=== PATIENT | female | born 1935 | race Caucasian/White ===

== ENCOUNTER → 2016-06-15 | Outpatient (CLI) | payer MEDICARE ==
[~2016-06-15] MED LIST: ACET-1600 PO; AMLO-284 PO; AMLO1TAB12 PO; ASPI-496 PO; ASPI-621 PO; ASPI1TAB2 PO; ATOR20TA PO; ATOR20TA9 PO; CALC-109 PO; CALC-31 PO; CETI10CA PO; CETI10TA24 PO; CHOL400T2 PO; CRAN1CAP9 PO; CRANBERRY VIT C PO; FEXO1TAB25 PO; FISH1CAP PO; GLUC1500 PO; GLUC1CAP13 PO; ISOS30TA8 PO; MULT-717 PO; OMEP20CA9 PO; OMEP20TA62 PO; PARO-28 PO; PARO20TA4 PO; POVI15DR EACHEYE; TRAM50TA2 PO
== END | disposition home or self-care (01) ==
LOC: CFH 14:46
PROVIDERS: ATTEND Family Medicine
DX: R91.1 Solitary pulmonary nodule (principal); M47.894 Other spondylosis, thoracic region
CPT/HCPCS: 71020

== ENCOUNTER → 2016-07-19 | Outpatient (CLI) | payer MEDICARE | END | disposition home or self-care (01) | LOC: CFH 15:57 | PROVIDERS: ATTEND Family Medicine | DX: J18.9 Pneumonia, unspecified organism (principal); I70.0 Atherosclerosis of aorta; M47.894 Other spondylosis, thoracic region | CPT/HCPCS: 71020 ==

== ENCOUNTER → 2016-08-22 | Outpatient (CLI) | payer MEDICARE | END | disposition home or self-care (01) | LOC: CFH 15:25 | PROVIDERS: ATTEND Family Medicine | DX: R91.8 Other nonspecific abnormal finding of lung field (principal); J98.11 Atelectasis | CPT/HCPCS: 71020 ==

== ENCOUNTER → 2016-09-06 | Outpatient (CLI) | payer MEDICARE | END | disposition home or self-care (01) | LOC: CFH 15:40 | PROVIDERS: ATTEND Family Medicine | DX: R91.8 Other nonspecific abnormal finding of lung field (principal); I70.0 Atherosclerosis of aorta | CPT/HCPCS: 71020 ==

== ENCOUNTER → 2016-09-26 | Outpatient (CLI) | payer MEDICARE | END | disposition home or self-care (01) | LOC: CFH 15:14 | PROVIDERS: ATTEND Family Medicine | DX: R91.8 Other nonspecific abnormal finding of lung field (principal); I70.0 Atherosclerosis of aorta | CPT/HCPCS: 71020 ==

== ENCOUNTER 2016-10-17 05:43 | Day surgery (SDC) | payer MEDICARE ==
[~2016-10-17] VITALS: Ht 157.5 cm; Wt 70.7 kg
[2016-10-17 06:07] VITALS: BP 122/70
[2016-10-17] MEDS ORDERED: SODIUM CHLORIDE 0.9% 1,000 ML IV SCH (06:30)
[2016-10-17] MEDS ORDERED: LIDOCAINE 1%, 20ML ONE (07:36)
[2016-10-17] MEDS ORDERED: NALOXONE 1 MG/ML, 2ML ONE (08:17)
[2016-10-17] MEDS ORDERED: FENTANYL PF 100 MCG/2ML ONE (08:17)
[2016-10-17] MEDS ORDERED: MIDAZOLAM 1 MG/ML, 5ML ONE (08:17)
[2016-10-17] MEDS ORDERED: FLUMAZENIL 0.1 MG/1 ML, 5ML ONE (08:18)
== END 2016-10-17 13:15 ==
LOC: OUT 05:43
PROVIDERS: ATTEND Family Medicine
DX: C34.91 Malignant neoplasm of unspecified part of right bronchus or lung (principal); I10 Essential (primary) hypertension; Z87.01 Personal history of pneumonia (recurrent); Z87.891 Personal history of nicotine dependence
CPT/HCPCS: 32405; 71010; 77012; 88305; 99156; 99157; J2250; J3010; J3490; J2310

== ENCOUNTER → 2016-10-31 | Outpatient (CLI) | payer MEDICARE | LOC: CARD 14:30 | PROVIDERS: ATTEND Thoracic Surgery (Cardiothoracic Vascular Surgery) | DX: C34.30 Malignant neoplasm of lower lobe, unspecified bronchus or lung (principal) | CPT/HCPCS: 94060; 94726; 94729 ==

== ENCOUNTER → 2016-11-02 | Outpatient (CLI) | payer MEDICARE ==
[~2016-11-02] MED LIST changes: +ASPI-691 PO; -ASPI1TAB2 PO
== END | disposition home or self-care (01) ==
LOC: PETCFH 09:15
PROVIDERS: ATTEND Thoracic Surgery (Cardiothoracic Vascular Surgery)
DX: C34.31 Malignant neoplasm of lower lobe, right bronchus or lung (principal); K57.30 Diverticulosis of large intestine without perforation or abscess without bleeding; M47.896 Other spondylosis, lumbar region
CPT/HCPCS: 78815; A9552

== ENCOUNTER → 2016-11-05 | Outpatient (CLI) | payer MEDICARE ==
[~2016-11-05] MED LIST changes: -ASPI-691 PO; +ASPI1TAB2 PO; +GADOBUTROL 7.5 MMOL/7.5 ML PFS ONE
== END | disposition home or self-care (01) ==
LOC: CFH 07:12
PROVIDERS: ATTEND Thoracic Surgery (Cardiothoracic Vascular Surgery)
DX: C34.31 Malignant neoplasm of lower lobe, right bronchus or lung (principal); I67.82 Cerebral ischemia
CPT/HCPCS: 70553; 82565; A9585

== ENCOUNTER → 2016-11-15 | Outpatient (CLI) | payer MEDICARE ==
[~2016-11-15] MED LIST changes: +ASPI-691 PO; -ASPI1TAB2 PO; -GADOBUTROL 7.5 MMOL/7.5 ML PFS ONE
== END | disposition home or self-care (01) ==
LOC: CVU 10:27
PROVIDERS: ATTEND Internal Medicine Cardiovascular Disease
DX: Z01.810 Encounter for preprocedural cardiovascular examination (principal); I08.3 Combined rheumatic disorders of mitral, aortic and tricuspid valves; J18.9 Pneumonia, unspecified organism; Z85.118 Personal history of other malignant neoplasm of bronchus and lung
CPT/HCPCS: 93306; 93880

== ENCOUNTER 2016-12-18 11:25 | Inpatient (IN) | payer MEDICARE ==
[~2016-12-18] VITALS: Ht 157.5 cm; Wt 70.3 kg
[~2016-12-18 11:25] MED LIST changes: +BUPIVACAINE/PF 0.5% ONE; +EPINEPHRINE 1 MG/ML, 1ML ONE; +GLYCOPYRROLATE 0.2MG/1ML, 5ML ONE; +NEOSTIGMINE 1 MG/ML, 10ML ONE
[2016-12-18] MEDS ORDERED: LACTATED RINGERS 1,000 ML IV SCH ×2 (12:04→15:53)
[2016-12-18] MEDS ORDERED: FENTANYL PF 100 MCG/2ML ONE ×3 (12:50→15:51)
[2016-12-18] MEDS ORDERED: CLINDAMYCIN 150 MG/ML, 6ML ONE (13:29)
[2016-12-18] MEDS ORDERED: ALBUTEROL SULFATE 2.5 MG/3 ML NPPB PRN (13:30)
[2016-12-18] MEDS ORDERED: LABETALOL 5MG/ML, 20ML IV PRN (13:30)
[2016-12-18] MEDS ORDERED: HYDROmorphone 1 MG/ML, 1ML IV PRN (13:30)
[2016-12-18] MEDS ORDERED: ONDANSETRON 2MG/ML, 2ML IVPush PRN ×2 (13:30→16:00)
[2016-12-18] MEDS ORDERED: FENTANYL PF 100 MCG/2ML IV PRN (13:30)
[2016-12-18] MEDS ORDERED: PROMETHAZINE 25 MG/ML, 1ML IV PRN (13:30)
[2016-12-18] MEDS ORDERED: hydrALAzine 20 MG/ML, 1ML IV PRN (13:30)
[2016-12-18] MEDS ORDERED: ACETAMINOPHEN 325 MG TABLET PO PRN (13:30)
[2016-12-18] MEDS ORDERED: PROPOFOL 10 MG/ML, 20ML ONE (14:07)
[2016-12-18] MEDS ORDERED: ROCURONIUM 10 MG/ML ONE (14:07)
[2016-12-18] MEDS ORDERED: ONDANSETRON 2MG/ML, 2ML ONE (14:08)
[2016-12-18] MEDS ORDERED: DEXAMETHASONE 4 MG/ML, 1ML ONE ×2 (14:08)
[2016-12-18] MEDS ORDERED: PHENYLEPHRINE 10 MG/ML ONE ×2 (14:40)
[2016-12-18] MEDS ORDERED: OXYcodone 5 MG/5 ML ORAL.SOL UDC ONE (15:51)
[2016-12-18] MEDS ORDERED: HYDROmorphone 1 MG/ML, 1ML ONE (15:51)
[2016-12-18] MEDS ORDERED: DIPHENHYDRAMINE 25 MG CAPSULE PO PRN (16:00)
[2016-12-18] MEDS ORDERED: LORazepam 1MG TABLET PO PRN (16:00)
[2016-12-18] MEDS ORDERED: hydrALAzine 20 MG/ML, 1ML IVPush PRN (16:00)
[2016-12-18] MEDS ORDERED: ENALAPRILAT 1.25 MG/ML, 2ML IVPush PRN (16:00)
[2016-12-18] MEDS ORDERED: DIPHENHYDRAMINE 50 MG/ML, 1ML IVPush PRN (16:00)
[2016-12-18] MEDS ORDERED: ACETAMINOPHEN 650 MG SUPP PR PRN (16:00)
[2016-12-18] MEDS ORDERED: LORazepam 2 MG/ML, 1ML IVPush PRN (16:00)
[2016-12-18] MEDS: FAMOTIDINE 20 MG TABLET PO SCH (16:30)
[2016-12-18] MEDS ORDERED: HYDROcodone/APAP 7.5-325MG/15ML UDC PO PRN (16:30)
[2016-12-18] MEDS ORDERED: HYDROcodone/APAP 7.5-325MG/15ML UDC ONE (16:30)
[2016-12-18 18:18] VITALS: BP 92/44
[2016-12-18 20:23] VITALS: BP 99/40
[2016-12-18] MEDS: ATORVASTATIN 20 MG TABLET PO SCH (21:52)
[2016-12-18] MEDS: FAMOTIDINE 20 MG/2 ML IVPush SCH (21:52)
[2016-12-18] MEDS: HYDROcodone/APAP 5/325 TABLET PO PRN (22:37)
[2016-12-18] MEDS: HYDROmorphone 2 MG/ML, 1ML IVPush PRN (22:53)
[2016-12-19 00:44] VITALS: BP 108/53
[2016-12-19] MEDS: FAMOTIDINE 20 MG TABLET PO SCH ×2 (04:18→17:27)
[2016-12-19] MEDS: HYDROmorphone 2 MG/ML, 1ML IVPush PRN ×4 (04:25→23:49)
[2016-12-19 04:42] LABS: HEMATOCRIT 36.8 % (34.6-47.8); HEMOGLOBIN 12.3 g/dL (11.7-16.4); WHITE BLOOD COUNT 9.5 x10^3/uL (3.4-10)
[2016-12-19 04:52] LABS: BLOOD UREA NITROGEN 16 mg/dL (7-18)
[2016-12-19 08:01] VITALS: BP 106/52
[2016-12-19] MEDS ORDERED: VALSARTAN PO SCH (09:00)
[2016-12-19] MEDS ORDERED: AMLODIPINE PO SCH (09:00)
[2016-12-19] MEDS: ENOXAPARIN 40 MG/0.4 ML SQ SCH (09:29)
[2016-12-19] MEDS: FAMOTIDINE 20 MG/2 ML IVPush SCH (09:29)
[2016-12-19] MEDS: PAROXETINE 20 MG TABLET PO SCH (09:29)
[2016-12-19 15:10] VITALS: BP 119/62
[2016-12-19 15:11] VITALS: BP 119/62
[2016-12-19 19:11] VITALS: BP 110/56
[2016-12-19] MEDS: ATORVASTATIN 20 MG TABLET PO SCH (20:11)
[2016-12-20 01:44] VITALS: BP 123/60
[2016-12-20] MEDS: ACETAMINOPHEN 325 MG TABLET PO PRN (03:58)
[2016-12-20] MEDS: FAMOTIDINE 20 MG TABLET PO SCH ×2 (04:28→17:34)
[2016-12-20 06:54] VITALS: BP 145/58
[2016-12-20] MEDS: HYDROmorphone 2 MG/ML, 1ML IVPush PRN (08:22)
[2016-12-20] MEDS: ENOXAPARIN 40 MG/0.4 ML SQ SCH (09:00)
[2016-12-20] MEDS: PAROXETINE 20 MG TABLET PO SCH (10:19)
[2016-12-20 12:37] LABS: PATH.CAST-FLAG NOT PRESENT; SPERM-FLAG NOT PRESENT; SRC-FLAG NOT PRESENT; XTAL-FLAG NOT PRESENT; YLC-FLAG NOT PRESENT
[2016-12-20 14:46] VITALS: BP 128/61
[2016-12-20] MEDS ORDERED: NITROFURANTOIN (MACROBID) 100 MG CAPSULE PO SCH (16:00)
[2016-12-20] MEDS: FOSFOMYCIN 3 GM PACKET PO SCH (17:34)
[2016-12-20] MEDS: HYDROcodone/APAP 5/325 TABLET PO PRN (17:42)
[2016-12-20 18:44] VITALS: BP 135/70
[2016-12-20] MEDS: ATORVASTATIN 20 MG TABLET PO SCH (20:05)
[2016-12-21 01:26] VITALS: BP 118/54
[2016-12-21] MEDS: HYDROmorphone 2 MG/ML, 1ML IVPush PRN ×3 (04:47→21:04)
[2016-12-21] MEDS: FAMOTIDINE 20 MG TABLET PO SCH ×2 (04:47→18:03)
[2016-12-21 06:32] VITALS: BP 95/57
[2016-12-21] MEDS: VALSARTAN 80 MG TABLET PO SCH ×2 (08:42→09:00)
[2016-12-21] MEDS: PAROXETINE 20 MG TABLET PO SCH (08:43)
[2016-12-21] MEDS: AMLODIPINE 2.5 MG TABLET PO SCH ×2 (08:43→09:00)
[2016-12-21] MEDS: ENOXAPARIN 40 MG/0.4 ML SQ SCH (08:43)
[2016-12-21 13:35] VITALS: BP 82/46
[2016-12-21] MEDS ORDERED: FUROSEMIDE 20 MG/2 ML IV ONE (14:00)
[2016-12-21 14:41] VITALS: BP 125/69
[2016-12-21] MEDS: ATORVASTATIN 20 MG TABLET PO SCH (19:38)
[2016-12-21 19:39] VITALS: BP 143/75
[2016-12-22 02:14] VITALS: BP 128/58
[2016-12-22] MEDS: HYDROmorphone 2 MG/ML, 1ML IVPush PRN ×5 (02:34→20:33)
[2016-12-22] MEDS: FAMOTIDINE 20 MG TABLET PO SCH ×2 (05:00→18:16)
[2016-12-22 05:48] LABS: HEMATOCRIT 39.3 % (34.6-47.8); HEMOGLOBIN 12.9 g/dL (11.7-16.4); WHITE BLOOD COUNT 7.6 x10^3/uL (3.4-10)
[2016-12-22 06:00] LABS: BLOOD UREA NITROGEN 13 mg/dL (7-18)
[2016-12-22 07:40] VITALS: BP 123/60
[2016-12-22] MEDS: AMLODIPINE 2.5 MG TABLET PO SCH (08:10)
[2016-12-22] MEDS: VALSARTAN 80 MG TABLET PO SCH (08:10)
[2016-12-22] MEDS: ENOXAPARIN 40 MG/0.4 ML SQ SCH (08:10)
[2016-12-22] MEDS: PAROXETINE 20 MG TABLET PO SCH (08:10)
[2016-12-22] MEDS ORDERED: BISACODYL 10 MG SUPP PR PRN (10:30)
[2016-12-22 14:29] VITALS: BP 101/61
[2016-12-22] MEDS: FOSFOMYCIN 3 GM PACKET PO SCH (16:02)
[2016-12-22] MEDS: ATORVASTATIN 20 MG TABLET PO SCH (19:43)
[2016-12-22 20:15] VITALS: BP 149/77
[2016-12-23 01:59] VITALS: BP 122/67
[2016-12-23] MEDS: ACETAMINOPHEN 325 MG TABLET PO PRN ×2 (02:13→20:08)
[2016-12-23] MEDS: FAMOTIDINE 20 MG TABLET PO SCH ×3 (05:43→16:33)
[2016-12-23 07:04] VITALS: BP 142/70
[2016-12-23] MEDS: PAROXETINE 20 MG TABLET PO SCH (09:48)
[2016-12-23] MEDS: ENOXAPARIN 40 MG/0.4 ML SQ SCH (09:48)
[2016-12-23] MEDS ORDERED: ALBUTEROL/IPRATROPIUM 2.5MG/0.5MG, 3 ML ONE (11:35)
[2016-12-23 12:31] VITALS: BP 121/74
[2016-12-23] MEDS: ALBUTEROL/IPRATROPIUM 2.5MG/0.5MG, 3 ML NPPB SCH ×2 (15:00→20:45)
[2016-12-23 19:31] VITALS: BP 131/75
[2016-12-23] MEDS: ATORVASTATIN 20 MG TABLET PO SCH (20:08)
[2016-12-23] MEDS: IBUPROFEN 200 MG TABLET PO PRN (20:10)
[2016-12-23] MEDS ORDERED: ACETAMINOPHEN 650 MG SUPP PR PRN (21:30)
[2016-12-23] MEDS ORDERED: DIPHENHYDRAMINE 50 MG/ML, 1ML IVPush PRN (21:30)
[2016-12-23] MEDS ORDERED: ENALAPRILAT 1.25 MG/ML, 2ML IVPush PRN (21:30)
[2016-12-23] MEDS ORDERED: DIPHENHYDRAMINE 25 MG CAPSULE PO PRN (21:30)
[2016-12-23] MEDS ORDERED: hydrALAzine 20 MG/ML, 1ML IVPush PRN (21:30)
[2016-12-23] MEDS ORDERED: LORazepam 2 MG/ML, 1ML IVPush PRN (21:30)
[2016-12-24 03:55] VITALS: BP 109/71
[2016-12-24 06:56] VITALS: BP 114/68
[2016-12-24] MEDS: IBUPROFEN 200 MG TABLET PO PRN ×2 (08:48→15:29)
[2016-12-24] MEDS: VALSARTAN 80 MG TABLET PO SCH (08:50)
[2016-12-24] MEDS: AMLODIPINE 2.5 MG TABLET PO SCH (08:50)
[2016-12-24] MEDS: ENOXAPARIN 40 MG/0.4 ML SQ SCH (08:51)
[2016-12-24] MEDS: PAROXETINE 20 MG TABLET PO SCH (08:51)
[2016-12-24] MEDS: FAMOTIDINE 20 MG TABLET PO SCH ×2 (08:51→21:39)
[2016-12-24] MEDS ORDERED: AMLODIPINE 2.5 MG TABLET PO SCH (09:00)
[2016-12-24] MEDS ORDERED: VALSARTAN 80 MG TABLET PO SCH (09:00)
[2016-12-24] MEDS: ALBUTEROL/IPRATROPIUM 2.5MG/0.5MG, 3 ML NPPB SCH ×4 (09:33→18:20)
[2016-12-24 12:41] VITALS: BP 107/65
[2016-12-24 19:46] VITALS: BP 94/59
[2016-12-24] MEDS: ATORVASTATIN 20 MG TABLET PO SCH (21:38)
[2016-12-25 01:22] VITALS: BP 90/51
[2016-12-25] MEDS: ALBUTEROL/IPRATROPIUM 2.5MG/0.5MG, 3 ML NPPB SCH ×3 (06:33→15:17)
[2016-12-25 07:32] VITALS: BP 110/60
[2016-12-25] MEDS: FAMOTIDINE 20 MG TABLET PO SCH (09:25)
[2016-12-25] MEDS: PAROXETINE 20 MG TABLET PO SCH (09:25)
[2016-12-25] MEDS: ENOXAPARIN 40 MG/0.4 ML SQ SCH (09:28)
[2016-12-25] MEDS: AMLODIPINE 2.5 MG TABLET PO SCH (12:07)
[2016-12-25] MEDS: VALSARTAN 80 MG TABLET PO SCH (12:07)
[2016-12-25 14:15] VITALS: BP 113/57
[2016-12-25] MEDS: ACETAMINOPHEN 325 MG TABLET PO PRN (14:18)
== END 2016-12-25 17:35 | disposition home or self-care (01) | DRG 163 ==
LOC: ORIP 11:25 → 3NW 16:17
PROVIDERS: ADMIT Thoracic Surgery (Cardiothoracic Vascular Surgery); ATTEND Thoracic Surgery (Cardiothoracic Vascular Surgery)
PROC: 07B74ZX Excision of Thorax Lymphatic, Percutaneous Endoscopic Approach, Diagnostic (ICD-10-PCS; 2016-12-18)
PROC: 0BTF4ZZ Resection of Right Lower Lung Lobe, Percutaneous Endoscopic Approach (ICD-10-PCS; principal; 2016-12-18 13:30)
DX: C34.31 Malignant neoplasm of lower lobe, right bronchus or lung (principal); J96.00 Acute respiratory failure, unspecified whether with hypoxia or hypercapnia; E44.1 Mild protein-calorie malnutrition
CPT/HCPCS: 36415; 71010; 80048; 81001; 85025; 86850; 86900; 86923; 87077; 87086; 87186; 88305; 88309; 93005; 94640; C1729; J0171; J1100; J1170; J1650; J2405; J2704; J2710; J3010; J3490; J7620; J2370; J7120; S0028

== ENCOUNTER 2017-01-17 10:34 | Day surgery (SDC) | payer MEDICARE ==
[~2017-01-17] VITALS: Ht 157.5 cm; Wt 69.2 kg
[~2017-01-17 10:34] MED LIST changes: -BUPIVACAINE/PF 0.5% ONE; -EPINEPHRINE 1 MG/ML, 1ML ONE; -GLYCOPYRROLATE 0.2MG/1ML, 5ML ONE; -NEOSTIGMINE 1 MG/ML, 10ML ONE
[2017-01-17] MEDS ORDERED: PLEASE ENTER HEIGHT AND WEIGHT MC SCH (11:00)
[2017-01-17 11:14] VITALS: BP 132/80
[2017-01-17] MEDS ORDERED: SODIUM CHLORIDE 0.9% 1,000 ML IV SCH (11:17)
[2017-01-17] MEDS ORDERED: VANCOMYCIN PMX 1GM/200ML 200 ML IVPB ONE (11:30)
[2017-01-17] MEDS ORDERED: LIDOCAINE 1%, 20ML ONE (11:44)
[2017-01-17] MEDS ORDERED: MIDAZOLAM 1 MG/ML, 5ML ONE (12:50)
[2017-01-17] MEDS ORDERED: FENTANYL PF 100 MCG/2ML ONE (12:50)
== END 2017-01-17 15:15 ==
LOC: OUT 10:34
PROVIDERS: ATTEND Internal Medicine Hematology & Oncology
DX: Z45.2 Encounter for adjustment and management of vascular access device (principal); C34.90 Malignant neoplasm of unspecified part of unspecified bronchus or lung; I10 Essential (primary) hypertension; E78.00 Pure hypercholesterolemia, unspecified; F41.9 Anxiety disorder, unspecified; Z98.890 Other specified postprocedural states; Z88.5 Allergy status to narcotic agent; Z88.0 Allergy status to penicillin; Z88.8 Allergy status to other drugs, medicaments and biological substances; Z88.1 Allergy status to other antibiotic agents; Z91.040 Latex allergy status
CPT/HCPCS: 36561; 76937; 77001; 99156; 99157; C1788; J3370; J7030; J2250; J3010; J3490; J1642

== ENCOUNTER → 2017-01-18 | Outpatient (CLI) | payer MEDICARE | END | disposition home or self-care (01) | LOC: ROC 13:31 | PROVIDERS: ATTEND Radiology Radiation Oncology | DX: C34.31 Malignant neoplasm of lower lobe, right bronchus or lung (principal) | CPT/HCPCS: G0463 ==

== ENCOUNTER → 2017-04-03 | Outpatient (CLI) | payer MEDICARE ==
[~2017-04-03] MED LIST changes: -GLUC1500 PO; +GLUC15006 PO
== END | disposition home or self-care (01) ==
LOC: ROC 09:37
PROVIDERS: ATTEND Radiology Radiation Oncology
DX: C34.31 Malignant neoplasm of lower lobe, right bronchus or lung (principal)
CPT/HCPCS: G0463

== ENCOUNTER → 2017-04-29 | Outpatient (CLI) | payer MEDICARE | END | disposition home or self-care (01) | LOC: CFH 10:08 | PROVIDERS: ATTEND Radiology Radiation Oncology | DX: J90 Pleural effusion, not elsewhere classified (principal); R91.8 Other nonspecific abnormal finding of lung field; I10 Essential (primary) hypertension; C34.31 Malignant neoplasm of lower lobe, right bronchus or lung; Z92.3 Personal history of irradiation | CPT/HCPCS: 71250; 74176 ==

== ENCOUNTER → 2017-04-30 | Outpatient (CLI) | payer MEDICARE | END | disposition home or self-care (01) | LOC: ROC 08:21 | PROVIDERS: ATTEND Radiology Radiation Oncology | DX: C34.31 Malignant neoplasm of lower lobe, right bronchus or lung (principal) | CPT/HCPCS: G0463 ==

== ENCOUNTER → 2017-08-07 | Outpatient (CLI) | payer MEDICARE ==
[~2017-08-07] MED LIST changes: +OMNIPAQUE 350 MG/ML, 100ML BOTTLE ONE
== END | disposition home or self-care (01) ==
LOC: RAD 14:22
PROVIDERS: ATTEND Internal Medicine Hematology & Oncology
DX: C34.31 Malignant neoplasm of lower lobe, right bronchus or lung (principal); R91.8 Other nonspecific abnormal finding of lung field; J90 Pleural effusion, not elsewhere classified; J98.19 Other pulmonary collapse; K57.30 Diverticulosis of large intestine without perforation or abscess without bleeding; E27.8 Other specified disorders of adrenal gland; F40.240 Claustrophobia
CPT/HCPCS: 71260; 74177; Q9967

== ENCOUNTER 2017-08-19 07:46 | Day surgery (SDC) | payer MEDICARE ==
[~2017-08-19] VITALS: Ht 152.4 cm; Wt 2.5 kg
[~2017-08-19 07:46] MED LIST changes: -OMNIPAQUE 350 MG/ML, 100ML BOTTLE ONE
[2017-08-19 08:38] VITALS: BP 134/85
[2017-08-19] MEDS ORDERED: FENTANYL PF 100 MCG/2ML ONE ×3 (09:37→09:40)
[2017-08-19] MEDS ORDERED: MIDAZOLAM 1 MG/ML, 5ML ONE (09:38)
[2017-08-19] MEDS ORDERED: NALOXONE 1 MG/ML, 2ML ONE (09:38)
[2017-08-19] MEDS ORDERED: FLUMAZENIL 0.1 MG/1 ML, 5ML ONE (09:38)
[2017-08-19] MEDS ORDERED: LIDOCAINE-MPF 2% ,5ML ONE (09:43)
== END 2017-08-19 12:20 ==
LOC: OUT 07:46
PROVIDERS: ATTEND Internal Medicine Hematology & Oncology
DX: T85.9XXA Unspecified complication of internal prosthetic device, implant and graft, initial encounter (principal); Y83.8 Other surgical procedures as the cause of abnormal reaction of the patient, or of later complication, without mention of misadventure at the time of the procedure; Y92.89 Other specified places as the place of occurrence of the external cause; I10 Essential (primary) hypertension
CPT/HCPCS: 36590; 77001; 99156; 99157; J2250; J3010; J3490; J2310

== ENCOUNTER → 2017-10-24 | Outpatient (CLI) | payer MEDICARE | END | disposition home or self-care (01) | LOC: CFH 12:05 | PROVIDERS: ATTEND Internal Medicine Hematology & Oncology | DX: J43.9 Emphysema, unspecified (principal); J90 Pleural effusion, not elsewhere classified; I25.10 Atherosclerotic heart disease of native coronary artery without angina pectoris; K57.30 Diverticulosis of large intestine without perforation or abscess without bleeding; N20.0 Calculus of kidney; E27.8 Other specified disorders of adrenal gland; C34.31 Malignant neoplasm of lower lobe, right bronchus or lung | CPT/HCPCS: 71250; 74176 ==

== ENCOUNTER → 2018-02-21 | Outpatient (CLI) | payer MEDICARE ==
[~2018-02-21] MED LIST changes: -ASPI-621 PO; +ASPI81TA45 PO; +ATOR20TA37 PO; -ATOR20TA9 PO
== END | disposition home or self-care (01) ==
LOC: RAD 15:35
PROVIDERS: ATTEND Internal Medicine Hematology & Oncology
DX: J47.9 Bronchiectasis, uncomplicated (principal); C34.31 Malignant neoplasm of lower lobe, right bronchus or lung
CPT/HCPCS: 71250; 74176

== ENCOUNTER → 2018-06-11 | Outpatient (CLI) | payer MEDICARE | END | disposition home or self-care (01) | LOC: CFH 13:54 | PROVIDERS: ATTEND Internal Medicine Hematology & Oncology | DX: C34.31 Malignant neoplasm of lower lobe, right bronchus or lung (principal); K57.30 Diverticulosis of large intestine without perforation or abscess without bleeding; J90 Pleural effusion, not elsewhere classified; M47.814 Spondylosis without myelopathy or radiculopathy, thoracic region; M47.816 Spondylosis without myelopathy or radiculopathy, lumbar region; I70.8 Atherosclerosis of other arteries; I70.0 Atherosclerosis of aorta | CPT/HCPCS: 71250; 74150 ==

== ENCOUNTER 2018-12-17 11:46 | Outpatient (CLI) | payer MEDICARE ==
[2018-12-17] MEDS ORDERED: OMNIPAQUE 350 MG/ML, 75ML BOTTLE ONE (16:32)
== END 2018-12-17 23:59 | disposition home or self-care (01) ==
LOC: RAD 11:46
PROVIDERS: ATTEND Internal Medicine Hematology & Oncology
DX: J98.4 Other disorders of lung (principal); I70.0 Atherosclerosis of aorta; I25.10 Atherosclerotic heart disease of native coronary artery without angina pectoris; M47.9 Spondylosis, unspecified; J90 Pleural effusion, not elsewhere classified; I70.8 Atherosclerosis of other arteries; J98.11 Atelectasis; E11.9 Type 2 diabetes mellitus without complications; Z82.49 Family history of ischemic heart disease and other diseases of the circulatory system; C34.90 Malignant neoplasm of unspecified part of unspecified bronchus or lung; Z85.118 Personal history of other malignant neoplasm of bronchus and lung
CPT/HCPCS: 36415; 71260; 82565; Q9967

== ENCOUNTER 2019-02-05 13:45 | Emergency (ER) | payer MEDICARE ==
[2019-02-05 13:48] VITALS: BP 108/56
[2019-02-05 14:15] LABS: BASOPHILS # (AUTO) 0.02 x10^3/uL (0-0.1); BASOPHILS % (AUTO) 0 % (0-1); EOSINOPHILS # (AUTO) 0.12 x10^3/uL (0-0.4); EOSINOPHILS % (AUTO) 2 % (1-7); LYMPHOCYTES # (AUTO) 0.88 x10^3/uL (1-3.4); LYMPHOCYTES % (AUTO) 13 % (22-44); MD NO; MEAN CORPUSCULAR HEMOGLOBIN 28.1 pg (27.0-34.8); MEAN CORPUSCULAR HGB CONC 32.5 g/dL (32.4-35.8); MEAN CORPUSCULAR VOLUME 86.3 fL (80-100); MEAN PLATELET VOLUME 8.6 fL (7.4-10.4); MONOCYTES # (AUTO) 0.42 x10^3/uL (0.2-0.8); MONOCYTES % (AUTO) 6 % (2-9); NEUTROPHILS % (AUTO) 79 % (42-75); PLATELET COUNT 158 x10^3/uL (130-400); RED BLOOD COUNT 4.89 x10^6/uL (3.82-5.3); RED CELL DISTRIBUTION WIDTH 15.2 % (9.6-15.2)
--- NOTE | 2019-02-05 14:15 | NUR ---
THIS IS AN 83 YO F W/ C/O NECK PAIN AFTER A FALL TODAY. PATIENT DOES NOT REMEMBER FALLING. FAMILY STATES IT WAS OVER 6 HOURS AGO. PATIENTS RESPIRATIONS ARE EVEN AND UNLABORED. PATIENT IS IN NO ACUTE DISTRESS. PATIENT IS RESTING ON GURNEY CONVERSING WITH STAFF. CALL LIGHT IN REACH. DENIES FURTHER NEEDS AT THIS TIME.
--- NOTE | 2019-02-05 14:17 | NUR ---
PATIENT TO RADIOLOGY.
[2019-02-05 14:18] LABS: ALBUMIN 3.8 g/dL (3.4-5.0); ANION GAP 9 mmol/L (5-15); CALCIUM 9.5 mg/dL (8.5-10.1); CHLORIDE 105 mmol/L (98-107); CREATININE 0.98 mg/dL (0.55-1.02)
--- NOTE | 2019-02-05 16:26 | NUR ---
Patient given discharge instructions and they have confirmed that they understand the instructions. Patient wheeled out in wheelchair.
== END 2019-02-05 16:28 ==
LOC: ED 16:20
DX: S13.9XXA Sprain of joints and ligaments of unspecified parts of neck, initial encounter (principal); S20.219A Contusion of unspecified front wall of thorax, initial encounter; I10 Essential (primary) hypertension; J44.9 Chronic obstructive pulmonary disease, unspecified; E78.5 Hyperlipidemia, unspecified; Z90.711 Acquired absence of uterus with remaining cervical stump; Z87.891 Personal history of nicotine dependence; Z85.118 Personal history of other malignant neoplasm of bronchus and lung; W19.XXXA Unspecified fall, initial encounter; Y93.89 Activity, other specified; Y92.89 Other specified places as the place of occurrence of the external cause; Y99.8 Other external cause status
CPT/HCPCS: 36415; 70450; 71045; 72125; 80048; 82040; 85025; 93005; 99284

== ENCOUNTER 2019-02-07 15:04 | Inpatient (IN) | payer MEDICARE ==
[~2019-02-07] VITALS: Ht 160 cm; Wt 64.8 kg
--- NOTE | 2019-02-07 15:17 | NUR ---
Pt arrives via ems s/p mglf after stnading up from toilet. Pt reports she has falle 3 times this week. Pt seen earlier this week for same situation. Pt reports completing chemo last year. Pt has no s/sx of trauma. Unknown loss of loc, pt does not recall symptoms. Pt connected to monitors and call light in reach. Piv captain's assistant by ems. Pt had 500cc ivf en route. Pt has + orthostatics per ems reports, bp drops to low 70s with standing and hr increases by 15. Awaiting further orders.
[2019-02-07] MEDS ORDERED: ONDA4TAB7 PO (15:23)
[2019-02-07] MEDS ORDERED: OMEP-110 PO (15:23)
[2019-02-07] MEDS ORDERED: FLUO20CA8 PO (15:23)
[2019-02-07] MEDS ORDERED: DONE10TA14 PO (15:23)
[2019-02-07 16:29] LABS: BASOPHILS # (AUTO) 0.02 x10^3/uL (0-0.1); BASOPHILS % (AUTO) 0 % (0-1); EOSINOPHILS # (AUTO) 0.06 x10^3/uL (0-0.4); EOSINOPHILS % (AUTO) 1 % (1-7); LYMPHOCYTES # (AUTO) 0.84 x10^3/uL (1-3.4); LYMPHOCYTES % (AUTO) 13 % (22-44); MD NO; MEAN CORPUSCULAR HGB CONC 32.8 g/dL (32.4-35.8); MEAN CORPUSCULAR VOLUME 85.4 fL (80-100); MEAN PLATELET VOLUME 8.4 fL (7.4-10.4); MONOCYTES # (AUTO) 0.44 x10^3/uL (0.2-0.8); MONOCYTES % (AUTO) 7 % (2-9); NEUTROPHILS % (AUTO) 80 % (42-75); PLATELET COUNT 139 x10^3/uL (130-400); RED BLOOD COUNT 4.54 x10^6/uL (3.82-5.3)
[2019-02-07] MEDS ORDERED: SODIUM CHLORIDE 0.9% 1,000ML IVBOLUS ONE (16:30)
[2019-02-07 16:36] LABS: ALBUMIN 3.4 g/dL (3.4-5.0); ANION GAP 5 mmol/L (5-15); CALCIUM 9.1 mg/dL (8.5-10.1); CHLORIDE 110 mmol/L (98-107)
--- NOTE | 2019-02-07 16:37 | NUR ---
Patient is resting comfortably in bed. Vital Signs within normal limits.
[2019-02-07 16:40] LABS: ALANINE AMINOTRANSFERASE 16 U/L (12-78); ALKALINE PHOSPHATASE 98 U/L (45-117); BILIRUBIN,TOTAL 0.7 mg/dL (0.2-1.0); TOTAL PROTEIN 6.5 g/dL (6.4-8.2)
--- NOTE | 2019-02-07 17:05 | NUR ---
Pt medicated per emar. Pt irritable. Pt resting in bed.
--- NOTE | 2019-02-07 17:22 | NUR ---
Irlanda rodas completed, Roseanna Natarajan RN at bedside as carol. Pt tolerated well. Isidoro. Pt sample walked to the lab.
--- NOTE | 2019-02-07 17:36 | NUR ---
SW to bedside at this time.
[2019-02-07 18:04] LABS: CULTURE INDICATED? YES; MICROSCOPIC INDICATED
[2019-02-07] MEDS ORDERED: NITROFURANTOIN 50 MG CAPSULE PO ONE (18:30)
--- NOTE | 2019-02-07 18:56 | NUR ---
LUNCH RN: HOSPITALIST TO BEDSIDE FOR ADMIT ASSESSMENT.
[2019-02-07] MEDS ORDERED: POLYETHYLENE GLYCOL 17 GM PACKET PO PRN (19:30)
[2019-02-07] MEDS ORDERED: BISACODYL 10 MG SUPP PR PRN (19:30)
[2019-02-07] MEDS ORDERED: ONDANSETRON 4 MG TABLET PO PRN (19:30)
[2019-02-07 21:11] VITALS: BP 145/83
[2019-02-07] MEDS: OMEPRAZOLE 20 MG CAPSULE.DR PO SCH (21:59)
[2019-02-07] MEDS: HEPARIN 5,000 UNITS/ML, 1ML SQ SCH (21:59)
[2019-02-07] MEDS: POTASSIUM CHLORIDE 30 MEQ in SODIUM CHLORIDE 0.9% 1,000 ML IV SCH (21:59)
[2019-02-07] MEDS: ATORVASTATIN 20 MG TABLET PO SCH (22:00)
[2019-02-08] VITALS (9 sets, daily range): BP systolic 87–142; BP diastolic 51–82
[2019-02-08] MEDS: NYSTATIN TOPICAL POWDER 15GM TP SCH ×4 (00:58→23:47)
[2019-02-08] MEDS: HEPARIN 5,000 UNITS/ML, 1ML SQ SCH ×3 (05:05→23:46)
[2019-02-08 05:48] LABS: BASOPHILS # (AUTO) 0.02 x10^3/uL (0-0.1); BASOPHILS % (AUTO) 1 % (0-1); EOSINOPHILS # (AUTO) 0.15 x10^3/uL (0-0.4); EOSINOPHILS % (AUTO) 3 % (1-7); LYMPHOCYTES # (AUTO) 0.87 x10^3/uL (1-3.4); LYMPHOCYTES % (AUTO) 17 % (22-44); MD NO; MEAN CORPUSCULAR HEMOGLOBIN 28.2 pg (27.0-34.8); MEAN CORPUSCULAR HGB CONC 32.7 g/dL (32.4-35.8); MEAN CORPUSCULAR VOLUME 86.4 fL (80-100); MEAN PLATELET VOLUME 8.9 fL (7.4-10.4); MONOCYTES # (AUTO) 0.34 x10^3/uL (0.2-0.8); MONOCYTES % (AUTO) 7 % (2-9); NEUTROPHILS # (AUTO) 3.68 x10^3/uL (1.8-6.8); NEUTROPHILS % (AUTO) 73 % (42-75); PLATELET COUNT 122 x10^3/uL (130-400); RED BLOOD COUNT 4.08 x10^6/uL (3.82-5.3)
[2019-02-08 05:55] LABS: ALANINE AMINOTRANSFERASE 20 U/L (12-78); ALBUMIN 3.1 g/dL (3.4-5.0); ANION GAP 6 mmol/L (5-15); CALCIUM 8.5 mg/dL (8.5-10.1); CHLORIDE 113 mmol/L (98-107); CREATININE 0.58 mg/dL (0.55-1.02)
[2019-02-08 05:58] LABS: ALKALINE PHOSPHATASE 89 U/L (45-117); BILIRUBIN,TOTAL 0.5 mg/dL (0.2-1.0); TOTAL PROTEIN 5.7 g/dL (6.4-8.2)
[2019-02-08] MEDS: TEMPLATE NON-FORMULARY MED. (Gluc Su/Msm/Magnesium/Vit C** (Glucosamine Complex-Msm Cap**) PO SCH (09:00)
[2019-02-08] MEDS ORDERED: FOSFOMYCIN 3 GM PACKET PO ONE (09:00)
[2019-02-08] MEDS ORDERED: NITROFURANTOIN (MACROBID) 100 MG CAPSULE PO SCH (09:00)
[2019-02-08] MEDS: CETIRIZINE 10 MG TABLET PO SCH (09:59)
[2019-02-08] MEDS: MULTIVITAMINS/MINERALS TABLET PO SCH (09:59)
[2019-02-08] MEDS: DONEPEZIL 10 MG TABLET PO SCH (09:59)
[2019-02-08] MEDS: SENNA/DOCUSATE TABLET PO SCH (09:59)
[2019-02-08] MEDS: POTASSIUM CHLORIDE 30 MEQ in SODIUM CHLORIDE 0.9% 1,000 ML IV SCH (12:05)
[2019-02-08] MEDS: OMEGA-3/FISH OIL CAPSULE PO SCH (12:29)
[2019-02-08] MEDS ORDERED: POTASSIUM CHLORIDE 20 MEQ TAB.ER.PRT PO ONE (15:00)
[2019-02-08] MEDS: OMEPRAZOLE 20 MG CAPSULE.DR PO SCH (19:59)
[2019-02-08] MEDS: ATORVASTATIN 20 MG TABLET PO SCH (19:59)
[2019-02-08] MEDS ORDERED: NITROFURANTOIN 5MG/ML ORAL SUSP PO SCH (21:00)
[2019-02-08] MEDS: CRANBERRY VIT C PO SCH (23:47)
[2019-02-09] VITALS (8 sets, daily range): BP systolic 64–146; BP diastolic 40–84
[2019-02-09] MEDS: POTASSIUM CHLORIDE 30 MEQ in SODIUM CHLORIDE 0.9% 1,000 ML IV SCH (03:18)
[2019-02-09 05:32] LABS: ANION GAP 5 mmol/L (5-15); CALCIUM 8.8 mg/dL (8.5-10.1); CHLORIDE 114 mmol/L (98-107); CREATININE 0.57 mg/dL (0.55-1.02)
[2019-02-09] MEDS: SENNA/DOCUSATE TABLET PO SCH (09:00)
[2019-02-09] MEDS: CRANBERRY VIT C PO SCH (09:00)
[2019-02-09] MEDS: NYSTATIN TOPICAL POWDER 15GM TP SCH ×3 (09:00→22:16)
[2019-02-09] MEDS: MULTIVITAMINS/MINERALS TABLET PO SCH (09:12)
[2019-02-09] MEDS: DONEPEZIL 10 MG TABLET PO SCH (09:12)
[2019-02-09] MEDS: OMEGA-3/FISH OIL CAPSULE PO SCH (09:12)
[2019-02-09] MEDS: HEPARIN 5,000 UNITS/ML, 1ML SQ SCH ×2 (09:12→16:59)
[2019-02-09] MEDS: CETIRIZINE 10 MG TABLET PO SCH (09:21)
[2019-02-09] MEDS: TEMPLATE NON-FORMULARY MED. (Gluc Su/Msm/Magnesium/Vit C** (Glucosamine Complex-Msm Cap**) PO SCH (09:22)
[2019-02-09] MEDS: ACETAMINOPHEN 325 MG TABLET PO PRN (16:51)
[2019-02-09] MEDS: OMEPRAZOLE 20 MG CAPSULE.DR PO SCH (22:16)
[2019-02-09] MEDS: ATORVASTATIN 20 MG TABLET PO SCH (22:16)
[2019-02-10] MEDS: HEPARIN 5,000 UNITS/ML, 1ML SQ SCH ×2 (02:19→09:50)
[2019-02-10 03:18] VITALS: BP 119/71
[2019-02-10 07:35] VITALS: BP 151/86
[2019-02-10] MEDS: SENNA/DOCUSATE TABLET PO SCH (09:00)
[2019-02-10] MEDS: NYSTATIN TOPICAL POWDER 15GM TP SCH (09:00)
[2019-02-10] MEDS: CRANBERRY VIT C PO SCH (09:00)
[2019-02-10] MEDS: OMEGA-3/FISH OIL CAPSULE PO SCH (09:50)
[2019-02-10] MEDS: DONEPEZIL 10 MG TABLET PO SCH (09:50)
[2019-02-10] MEDS: MULTIVITAMINS/MINERALS TABLET PO SCH (09:50)
[2019-02-10] MEDS: CETIRIZINE 10 MG TABLET PO SCH (09:50)
[2019-02-10] MEDS: ACETAMINOPHEN 325 MG TABLET PO PRN (09:50)
[2019-02-10 13:17] VITALS: BP 111/68
== END 2019-02-10 17:25 | DRG 689 ==
LOC: ED 15:38 → EDIP 18:18 → 4NW 20:16
PROVIDERS: ADMIT Family Medicine; ATTEND Family Medicine
PROC: 0T9B70Z Drainage of Bladder with Drainage Device, Via Natural or Artificial Opening (ICD-10-PCS; principal; 2019-02-07)
DX: N39.0 Urinary tract infection, site not specified (principal); J96.21 Acute and chronic respiratory failure with hypoxia; J98.11 Atelectasis; E78.5 Hyperlipidemia, unspecified; E87.6 Hypokalemia; F03.90 Unspecified dementia, unspecified severity, without behavioral disturbance, psychotic disturbance, mood disturbance, and anxiety; F32.9 Major depressive disorder, single episode, unspecified; F41.9 Anxiety disorder, unspecified; I10 Essential (primary) hypertension; J44.9 Chronic obstructive pulmonary disease, unspecified; K21.9 Gastro-esophageal reflux disease without esophagitis; M48.061 Spinal stenosis, lumbar region without neurogenic claudication; I95.1 Orthostatic hypotension; R29.6 Repeated falls; W18.30XA Fall on same level, unspecified, initial encounter; Y93.89 Activity, other specified; Y92.89 Other specified places as the place of occurrence of the external cause; Y99.8 Other external cause status; Z99.81 Dependence on supplemental oxygen; Z92.21 Personal history of antineoplastic chemotherapy; Z90.711 Acquired absence of uterus with remaining cervical stump; Z88.2 Allergy status to sulfonamides; Z88.1 Allergy status to other antibiotic agents; Z87.891 Personal history of nicotine dependence; Z85.118 Personal history of other malignant neoplasm of bronchus and lung; Z74.01 Bed confinement status
CPT/HCPCS: 36415; 70450; 71045; 71250; 72125; 72131; 80048; 80053; 81001; 82040; 85025; 87077; 87086; 87186; 93005; 99285; G0378; J1644; J3480; Q0162; J7030